=== PATIENT | female | born 1950 | race Caucasian/White ===

== ENCOUNTER 2016-08-23 10:28 | Outpatient (CLI) | payer MEDICARE | END 2016-08-23 10:29 | disposition home or self-care (01) | DX: Z13.820 Encounter for screening for osteoporosis (principal); N95.8 Other specified menopausal and perimenopausal disorders ==

== ENCOUNTER 2016-08-23 10:31 | Outpatient (CLI) | payer MEDICARE, OTHER | END 2016-08-23 10:32 | disposition home or self-care (01) | DX: N64.4 Mastodynia (principal); Z13.820 Encounter for screening for osteoporosis; N95.8 Other specified menopausal and perimenopausal disorders | CPT/HCPCS: 77080; G0204 ==

== ENCOUNTER 2017-05-10 13:02 | Outpatient (CLI) | payer MEDICARE ==
--- NOTE | 2017-05-10 14:02 | XRAY Preliminary Report ---
Exam: XR SHOULDER 3 VIEW LT IMPRESSION: Normal shoulder radiography. [facility] SITE ID: [id number]
--- NOTE | 2017-05-10 14:24 | XRAY Report ---
EXAM: LEFT SHOULDER RADIOGRAPHY EXAM DATE: 05/10/2017 01:33 PM. CLINICAL HISTORY: Acute on chronic neck pain with new left shoulder and arm pain since a fall 7 weeks ago. COMPARISON: None. TECHNIQUE: 3 views. FINDINGS: Bones: Normal. No fracture or bone lesion. Joints: The glenohumeral and acromioclavicular joints are normal. Type II acromion. Soft tissues: The visualized hemithorax is unremarkable. No soft tissue swelling. IMPRESSION: Normal shoulder radiography. [facility] Referring Provider Line: [phone] SITE ID: [id number]
--- NOTE | 2017-05-11 15:20 | MRI Report ---
EXAM: MRI CERVICAL SPINE WITHOUT CONTRAST EXAM DATE: 05/10/2017 02:05 PM. CLINICAL HISTORY: Chronic neck pain and left shoulder pain since fall 7 weeks ago. COMPARISONS: None. TECHNIQUE: Multiplanar, multisequence T1-weighted and fluid-sensitive sequences of the cervical spine without contrast. Other: None. FINDINGS: Neurologic Structures: The visualized posterior fossa structures are unremarkable. No signal abnormal ity in the visualized spinal cord. Alignment: No scoliosis or spondylolisthesis. Bone Marrow: No gross fractures or bone lesions. No marrow edema. Interspace Levels/Facets: C1-C2: Unremarkable. C2-C3: The disk is desiccated. A minimal posterior disk/osteophyte complex has no neurologic conseque nce. C3-C4: The disk is desiccated. A mild posterior disk/osteophyte complex results in minimal spinal can al narrowing. C4-C5: Moderate disk height loss is accompanied by anterior endplate spurring. A posterior disk/osteo phyte complex is greatest in the left foraminal region. It causes mild spinal canal, mild right garry inal, and severe left foraminal narrowing. C5-C6: Moderate disk height loss is accompanied by anterior endplate spurring. A posterior disk/osteo phyte complex results in mild spinal canal, mild right foraminal, and severe left foraminal narrowing . There is flattening of the anterior cord. C6-C7: A posterior disk/osteophyte complex and ligamentum flavum hypertrophy results in mild spinal c anal and severe left foraminal narrowing. The disk is desiccated. C7-T1: The disk is desiccated. Musculature: Normal. No edema or fatty atrophy. Other: The paravertebral and prevertebral soft tissues are normal. IMPRESSION: 1. Mild spinal canal, mild right foraminal, and severe left foraminal narrowing at C4-C5 due to a dis k/osteophyte complex. 2. Mild spinal canal, mild right foraminal, and severe left foraminal narrowing at C5-C6 due to a dis k/osteophyte complex. 3. Mild spinal canal and severe left foraminal narrowing at C6-C7 due to disk and posterior element d egenerative changes. [facility] Referring Provider Line: [phone] SITE ID: [id number]
== END 2017-05-10 13:03 | disposition home or self-care (01) ==
LOC: DI 13:02
PROVIDERS: ATTEND Physician Assistant
DX: M50.31 Other cervical disc degeneration, high cervical region (principal); M47.892 Other spondylosis, cervical region; M25.512 Pain in left shoulder
CPT/HCPCS: 72141

== ENCOUNTER 2018-02-17 11:57 | Outpatient (CLI) | payer MEDICARE, OTHER ==
--- NOTE | 2018-02-18 10:57 | Mammography Report ---
Reason: SCREENING MAMMO Procedure Date: 02/17/2018 Accession Number: [id number] / [id number] Procedure: CONSTANCE - Screening Mammo Dig Bilat CPT Code: FULL RESULT: EXAM: Screening Mammo Dig Bilat DATE: 02/17/2018 12:20 PM CLINICAL HISTORY: 67-year-old female with history of late childbearing. TECHNIQUE: Bilateral CC and MLO views were obtained. COMPARISON: 08/23/2016, 08/05/2015, 05/04/2013, 02/27/2012. FINDINGS: The breasts demonstrate heterogeneously dense fibroglandular parenchyma bilaterally. Best seen on the right MLO view is a hyperdense asymmetry in the upper breast, 4.2 cm from the nipple which is likely also demonstrated on the CC view, 12:00 position. This requires additional spot magnification or 3-D tomography views to clarify the finding. No other suspicious masses, clustered microcalcifications, or regions of architectural distortion are identified. IMPRESSION: Incomplete examination RECOMMENDATION: Additional evaluation as above. BIRADS CATEGORY 0: Incomplete examination STANDARD QUALIFYING STATEMENTS: 1. This examination was not reviewed with the aid of Computer-Aided Detection (CAD). 2. A negative or benign imaging report should not delay biopsy if clinically suspicious findings are present. Consider surgical consultation if warrented. More than 5% of cancers are not identified by imaging. 3. Dense breasts may obscure an underlying neoplasm. 4. This examination was reviewed without the aid of 3D breast imaging (tomosynthesis).
== END 2018-02-17 11:58 | disposition home or self-care (01) ==
LOC: DI 11:57
DX: Z12.31 Encounter for screening mammogram for malignant neoplasm of breast (principal)
CPT/HCPCS: 77067

== ENCOUNTER 2018-03-14 12:26 | Outpatient (CLI) | payer MEDICARE, OTHER ==
--- NOTE | 2018-03-14 14:33 | Mammography Report ---
Reason: ABN MAMMO - RT SPEC VIEWS Procedure Date: 03/14/2018 Accession Number: [id number] / [id number] Procedure: CONSTANCE - Diag Special Views Dig RT CPT Code: FULL RESULT: EXAM: Diag Special Views Dig RT DATE: 03/14/2018 2:27 PM CLINICAL HISTORY: Follow-up abnormal mammogram 02/17/2018 TECHNIQUE: Unilateral CC and MLO spot compression and true lateral view with tomography right breast. COMPARISON: 02/17/2018 FINDINGS: The density described on the prior mammogram report does not persist on additional views. IMPRESSION: Negative examination RECOMMENDATION: Follow-up routine screening in 12 months. BIRADS CATEGORY 1: Negative STANDARD QUALIFYING STATEMENTS: 1. This examination was reviewed with the aid of Computer-Aided Detection (CAD). 2. A negative or benign imaging report should not delay biopsy if clinically suspicious findings are present. Consider surgical consultation if warrented. More than 5% of cancers are not identified by imaging. 3. Dense breasts may obscure an underlying neoplasm.
== END 2018-03-14 12:27 | disposition home or self-care (01) ==
LOC: DI 12:26
PROVIDERS: ATTEND Family Medicine
DX: R92.8 Other abnormal and inconclusive findings on diagnostic imaging of breast (principal)

== ENCOUNTER 2018-10-14 12:43 | Outpatient (CLI) | payer MEDICARE, OTHER ==
--- NOTE | 2018-10-15 13:07 | XRAY Report ---
Reason: BILATERAL HIP PAIN,WORST ON LEFT,HX OF LEFT HIP RE Procedure Date: 10/14/2018 Accession Number: [id number] / [id number] Procedure: XR - Hips 2V BILAT CPT Code: FULL RESULT: EXAM: PELVIS AND BILATERAL HIP RADIOGRAPHY EXAM DATE: 10/14/2018 01:19 PM. CLINICAL HISTORY: BILATERAL HIP Pain, worst ON Left, hx OF LEFT HIP RE. COMPARISON: None. TECHNIQUE: Pelvis and each hip, 1 view each. FINDINGS: Bones: No definite fracture or other bone lesion. Joints: Left total hip prosthesis in anatomic alignment. No abnormal lucency associated with the prosthesis. Right hip joint space is well preserved, with mild marginal lipping. Unremarkable SI joints. Prominent degenerative changes in lower lumbar spine. Soft Tissues: Unremarkable. IMPRESSION: 1. Status post left THR. 2. Minimal right hip degenerative changes. 3. Prominent lower lumbar degenerative changes. [facility]
== END 2018-10-14 12:44 | disposition home or self-care (01) ==
LOC: DI 12:43
PROVIDERS: ATTEND Physician Assistant Medical
DX: M16.11 Unilateral primary osteoarthritis, right hip (principal); Z96.642 Presence of left artificial hip joint; M47.816 Spondylosis without myelopathy or radiculopathy, lumbar region; M25.552 Pain in left hip
CPT/HCPCS: 73521

== ENCOUNTER 2020-01-21 13:30 | Outpatient (CLI) | payer MEDICARE, OTHER ==
--- NOTE | 2020-01-22 09:17 | Mammography Report ---
BILATERAL DIGITAL SCREENING MAMMOGRAM 3D/2D: 01/21/2020 CLINICAL: Routine screening. Comparison is made to exams dated: 03/14/2018 mammogram, 02/17/2018 mammogram, 08/23/2016 mammogram, an d 08/05/2015 mammogram - [facility]. The tissue of both breasts is heterogeneously dense. This may lower the sensitivity of mammography. There is a new 4 mm area of grouped calcifications in the left breast at 7 o'clock posterior depth. No other significant masses, calcifications, or other findings are seen in either breast. IMPRESSION: INCOMPLETE: NEEDS ADDITIONAL IMAGING EVALUATION The new 4 mm area of grouped calcifications in the left breast are indeterminate. Mediolateral, spot magnification, and additional views are recommended. This exam was interpreted at Station ID: [id number]. NOTE: For mammograms, a report in lay terms will be sent to the patient. Approximately 15% of breast malignancies will not be visualized mammographically. In the management of a palpable breast mass, a negative mammogram must not discourage biopsy of a clinically suspicious lesion. Electronically Signed By: Peña mariscal/deidre:01/21/2020 18:04:42 ACR BI-RADS Category 0: Incomplete 3340F PARENCHYMAL PATTERN: (D) - The breast(s) demonstrate(s) heterogeneously dense fibroglandular khang watkins. BI-RADS CATEGORY: (0) - 0 RECOMMENDATION: (ADDMAM) - Recommend additional mammographic views. [id number] Immediate follow-up LATERALITY: (L)
== END 2020-01-21 13:31 | disposition home or self-care (01) ==
LOC: DI.N 13:30
PROVIDERS: ATTEND Physician Assistant Medical
DX: Z12.31 Encounter for screening mammogram for malignant neoplasm of breast (principal); R92.8 Other abnormal and inconclusive findings on diagnostic imaging of breast
CPT/HCPCS: 77063; 77067

== ENCOUNTER 2020-03-04 12:50 | Outpatient (CLI) | payer MEDICARE, OTHER ==
--- NOTE | 2020-03-07 16:12 | Mammography Report ---
UNILATERAL LEFT DIGITAL DIAGNOSTIC MAMMOGRAM 3D/2D: 03/04/2020 CLINICAL: Patient returns for magnification views of microcalcifications in the left breast. Comparison is made to exams dated: 01/21/2020 mammogram, 03/14/2018 mammogram, 02/17/2018 mammogram, 08/23/2016 mammogram, 08/05/2015 mammogram, and 05/04/2013 mammogram - [facility]. The tissue of left breast is heterogeneously dense. This may lower the sensitivity of mammography. There is a new 4 mm area of grouped heterogeneous calcifications in the left breast at 6 o'clock post erior depth. No other significant masses or calcifications are seen in the breast. IMPRESSION: SUSPICIOUS OF MALIGNANCY The new 4 mm area of grouped heterogeneous calcifications in the left breast are at a low suspicion f or malignancy. A stereotactic biopsy is recommended. This exam was interpreted at Station ID: [id number]. NOTE: For mammograms, a report in lay terms will be sent to the patient. Approximately 15% of breast malignancies will not be visualized mammographically. In the management of a palpable breast mass, a negative mammogram must not discourage biopsy of a clinically suspicious lesion. SUMMARY: This was discussed with the patient by the radiologist Dr. Brown at the time of the exam. Electronically Signed By: Karen elizabeth/deidre:03/04/2020 13:45:08 ACR BI-RADS Category 4a: Suspicious abnormality - low suspicion for malignancy 3344F PARENCHYMAL PATTERN: (D) - The breast(s) demonstrate(s) heterogeneously dense fibroglandular khang watkins. BI-RADS CATEGORY: (4a) - Low Susp Biopsy follow-up [id number] Immediate follow-up LATERALITY: (B)
== END 2020-03-04 12:51 | disposition home or self-care (01) ==
LOC: DI 12:50
PROVIDERS: ATTEND Physician Assistant Medical
DX: R92.1 Mammographic calcification found on diagnostic imaging of breast (principal)

== ENCOUNTER 2020-03-31 13:09 | Outpatient (CLI) | payer MEDICARE, OTHER ==
[~2020-03-31 13:09] MED LIST: BUFFERED LIDOCAINE 10 ML SYRINGE ONE; LIDOCAINE 1%-EPI 1:100000 20 ML MDV ONE
[2020-03-31] MEDS ORDERED: BUFFERED LIDOCAINE 10 ML SYRINGE IU ONE (14:59)
[2020-03-31] MEDS ORDERED: LIDOCAINE 1%-EPI 1:100000 20 ML MDV SUBQ ONE (15:00)
--- NOTE | 2020-04-05 11:43 | Mammography Report ---
DIGITAL TOMOGRAPHIC MAMMOGRAPHY GUIDED STEREOTACTIC GUIDED BIOPSY LEFT BREAST WITH POST DIGITAL MAMMO GRAPHIC IMAGING AND RADIOGRAPHIC SPECIMEN IMAGIN03/31/2020 CLINICAL: Microcalcifications left breast. Correlation is made to exams dated: 03/04/2020 mammogram, 01/21/2020 mammogram, 03/14/2018 mammogram, 02/17/2018 mammogram, 08/23/2016 mammogram, and 08/05/2015 mammogram - [facility]. A stereotactic guided biopsy was performed for the area of clustered calcifications located in the le ft breast at 6 o'clock middle depth. The skin was prepped in the usual manner. Local anesthetic was administered to the access site. A small incision was made in the breast. The abnormality was appr oached from the lateral aspect using an upright digital tomographic mammography unit. A 9 gauge biop sy needle was placed adjacent to the abnormality under computer guidance and confirmatory stereotacti c mammography images were obtained to document needle placement. Once the needle was documented to b e in the correct location, nine specimens were obtained using an automated biopsy gun. A skin adhesi ve was applied to the access site. Post procedure digital mammographic imaging demonstrates complete removal of the calcifications. The specimens were sent to the laboratory for pathological analysis. IMPRESSION: STEREOTACTIC GUIDED BIOPSY BENIGN Stereotactic guided biopsy of the area of clustered calcifications in the left breast middle depth wa s successful. The imaged specimens includes the calcifications. Pathology indicates benign fibroade noma (FA), fibrocystic changes (FC), and fibrofatty breast tissue. Pathology results are concordant with imaging findings. Return to annual mammogram screening schedule is recommended. Results and recommendations will be c ommunicated to the ordering provider's office. This exam was interpreted at Station ID: [id number]. Nahun taylor,jose ramon/:04/05/2020 11:22:01 BI-RADS CATEGORY: () - Mammogram [id number] return to screening LATERALITY: (B)
== END 2020-03-31 13:10 | disposition home or self-care (01) ==
LOC: DI 13:09
PROVIDERS: ATTEND Physician Assistant Medical
DX: D24.2 Benign neoplasm of left breast (principal); N60.12 Diffuse cystic mastopathy of left breast
CPT/HCPCS: 19081; 88305

== ENCOUNTER 2022-12-03 12:14 | Outpatient (CLI) | payer MEDICARE ==
--- NOTE | 2022-12-04 09:46 | Mammography Report ---
BILATERAL DIGITAL SCREENING MAMMOGRAM 3D/2D: 12/03/2022 CLINICAL: Routine screening. Comparison is made to exams dated: 03/31/2020 stereotactic biopsy, 03/04/2020 mammogram, 01/21/2020 ma mmogram, and 03/14/2018 mammogram - [facility]. Both breasts are heterogeneously dense, which may obscure small masses (category c / 51-75% glandular tissue). No significant masses, calcifications, or other findings are seen in either breast. There has been no significant interval change. IMPRESSION: NEGATIVE There is no mammographic evidence of malignancy. A 1 year screening mammogram is recommended. Based on the Tyrer Cuzick model (a risk assessment model) the patients lifetime risk is 8.3% and her 10 year risk is 7.5%. According to the ACR, ACS, and NCCN guidelines, an annual breast MRI exam molly g with mammogram is recommended if the patients lifetime risk is 20% or greater. This exam was interpreted at Station ID: [id number]. NOTE: For mammograms, a report in lay terms will be sent to the patient. Approximately 15% of breast malignancies will not be visualized mammographically. In the management of a palpable breast mass, a negative mammogram must not discourage biopsy of a clinically suspicious lesion. Electronically Signed By: Peña mariscal/deidre:12/03/2022 15:40:22 letter sent: No_Letter ACR BI-RADS Category 1: Negative 3341F PARENCHYMAL PATTERN: (D) - The breast(s) demonstrate(s) heterogeneously dense fibroglandular khang watkins. BI-RADS CATEGORY: (1) - 1 Mammogram [id number] 1 year screening LATERALITY: (B)
== END 2022-12-03 12:15 | disposition home or self-care (01) ==
LOC: DI.N 12:14
PROVIDERS: ATTEND Nurse Practitioner Family
DX: Z12.31 Encounter for screening mammogram for malignant neoplasm of breast (principal)

== ENCOUNTER 2023-03-11 11:42 | Emergency (ER) | payer OTHER, MEDICARE ==
[2023-03-11 12:09] VITALS: BP 158/68; O2SAT 99
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
== END 2023-03-11 15:47 | disposition home or self-care (01) ==
LOC: ED 11:42
DX: S06.0X0A Concussion without loss of consciousness, initial encounter (principal); S80.12XA Contusion of left lower leg, initial encounter; V89.2XXA Person injured in unspecified motor-vehicle accident, traffic, initial encounter; Y92.410 Unspecified street and highway as the place of occurrence of the external cause; Z79.899 Other long term (current) drug therapy
CPT/HCPCS: 99283; 99284